=== PATIENT | male | born 1940 | race Caucasian/White ===

== ENCOUNTER → 2022-01-01 13:13 | Outpatient (BNVA) | payer MEDICARE, SELFPAY | PROVIDERS: PCP Internal Medicine; Visit Provider Nurse Practitioner Family | DX: R55 Syncope and collapse (principal); I48.0 Paroxysmal atrial fibrillation; I35.0 Nonrheumatic aortic (valve) stenosis; I10 Essential (primary) hypertension | CPT/HCPCS: 99202 ==

== ENCOUNTER 2022-01-03 13:40 | Outpatient (REF) | payer MEDICARE, SELFPAY ==
--- NOTE | ~2022-01-03 | US_ITS ---
EXAMINATION: US EXTRACRANIAL CAROTID DUPLEX, BILATERAL CLINICAL INFORMATION: Syncope and collapse COMPARISON: None TECHNIQUE: Real-time ultrasound and Doppler techniques (integrating B-mode 2-D vascular images, Doppler spectral analysis and color-flow Doppler imaging) were utilized to interrogate the extracranial carotid arteries, the vertebral arteries and proximal subclavian arteries bilaterally. The degree of stenosis is determined by criteria similar to NASCET. FINDINGS: Right Side: 1. There is calcified atherosclerotic plaque seen in the bifurcation/proximal ICA region. 2. The common carotid artery PSV proximally is 48 cm/s and distally 68 cm/s. 3. The proximal internal carotid artery velocities are 145 cm/s systolic and 33 cm/s diastolic. 4. The proximal external carotid artery PSV is 441 cm/s. 5. The vertebral artery shows antegrade flow. 6. The subclavian artery waveforms are normal. Left Side: 1. There is calcified atherosclerotic plaque seen in the bifurcation/proximal ICA region. 2. The common carotid artery PSV proximally is 87 cm/s and distally 93 cm/s. 3. The proximal internal carotid artery velocities are 160 cm/s systolic and 28 cm/s diastolic. 4. The proximal external carotid artery PSV is 164 cm/s. 5. The vertebral artery shows antegrade flow. 6. The subclavian artery waveforms are normal. There is an arrhythmia. US/US carotid duplex BI IMPRESSION: 1. RIGHT: Calcified plaque. 0-49% right ICA stenosis. Right ECA stenosis. 2. LEFT: Calcified plaque. 0-49% left ICA stenosis.
== END 2022-01-03 13:41 | disposition home or self-care (01) ==
LOC: HO.US 13:40
PROVIDERS: Visit Provider Nurse Practitioner Family
DX: I25.10 Atherosclerotic heart disease of native coronary artery without angina pectoris (principal); I10 Essential (primary) hypertension; E78.5 Hyperlipidemia, unspecified; R55 Syncope and collapse
CPT/HCPCS: 93880

== ENCOUNTER → 2022-01-07 13:37 | Outpatient (BNVA) | payer MEDICARE, SELFPAY | PROVIDERS: PCP Internal Medicine; Visit Provider Internal Medicine | DX: R55 Syncope and collapse (principal); I25.10 Atherosclerotic heart disease of native coronary artery without angina pectoris; I35.0 Nonrheumatic aortic (valve) stenosis; I11.0 Hypertensive heart disease with heart failure; I50.32 Chronic diastolic (congestive) heart failure; Z79.899 Other long term (current) drug therapy | CPT/HCPCS: 93005; 99202 ==

== ENCOUNTER → 2022-01-08 06:37 | Outpatient (REF) | payer MEDICARE, SELFPAY ==
--- NOTE | 2022-01-08 06:43 | HM_ITS ---
* Total monitoring time 11 days and 22 hours. * Underlying rhythm is sinus as well as atrial fibrillation. * Atrial fibrillation burden was about 48%. * While in atrial fibrillation, rapid rates noted as much as 146/Min. Overall, about 15% the time, rate greater than 100/Min. * Pauses noted during atrial fibrillation. During sleep time as well as awake hours. Longest 5.7 seconds. * Occasional PVCs noted. Short runs noted. Longest 10 beats. Monomorphic. * No patient diary. * Patient was contacted advised to go to emergency room. MTDD
== END ==
LOC: HO.CARD 06:37
PROVIDERS: Visit Provider Nurse Practitioner Family
DX: I48.0 Paroxysmal atrial fibrillation (principal); I10 Essential (primary) hypertension; R55 Syncope and collapse
CPT/HCPCS: 93246

== ENCOUNTER 2022-01-14 07:47 | Outpatient (REF) | payer MEDICARE, SELFPAY ==
--- NOTE | 2022-01-14 07:49 | EEG_ITS ---
This is a 16-channel EEG with an EKG lead. The patient is reported awake during the tracing. Background EEG rhythm is low amplitude fast with no obvious asymmetry or paroxysmal tendency. Photic stimulation does not produce any significant abnormality. Hyperventilation is not performed. Cardiac lead does not reveal any significant abnormality. No sharp wave spikes or paroxysmal tendency noted. IMPRESSION: Unremarkable EEG. MD KACIE Bergman/TALISHA / [id number]
== END 2022-01-14 07:48 | disposition home or self-care (01) ==
LOC: HO.NEURO 07:47
PROVIDERS: Visit Provider Nurse Practitioner Family
DX: R55 Syncope and collapse (principal)
CPT/HCPCS: 95816

== ENCOUNTER → 2022-03-10 13:40 | Outpatient (BNVA) | payer MEDICARE, SELFPAY | PROVIDERS: PCP Internal Medicine; Visit Provider Internal Medicine | DX: Z45.02 Encounter for adjustment and management of automatic implantable cardiac defibrillator (principal); I11.0 Hypertensive heart disease with heart failure; I50.32 Chronic diastolic (congestive) heart failure; I49.5 Sick sinus syndrome; I48.0 Paroxysmal atrial fibrillation; I25.10 Atherosclerotic heart disease of native coronary artery without angina pectoris; I35.0 Nonrheumatic aortic (valve) stenosis | CPT/HCPCS: 93005; 93280; 99212 ==

== ENCOUNTER → 2022-03-19 12:44 | Outpatient (REF) | payer MEDICARE, SELFPAY ==
--- NOTE | 2022-03-19 12:48 | CA_ITS ---
Transthoracic Echocardiogram Patient (Last, First, Middle): Scotty Zarate, Gender: Male Date of : 1940 Age: 81 Procedure Date: 03/19/2022 Procedure Type: Transthoracic Echocardiogram Location: OP Height: 170.18 cm Weight: 79.38 kg BSA: 1.91 m2 Heart Rate: bpm BP: 160 / 65 mmHg Actuarial Trainee: TO Referring MD: Monster Corona MD Symptoms: I35.0 - Nonrheumatic aortic (valve) stenosis Study Quality: Fair ECG Rhythm: Sinus Conclusions: - 1. Normal LV systolic function with mild LVH with grade 2 diastolic dysfunction 2. Qmsv-yc-fbswwvdl aortic stenosis 3. Mildly dilated left atrium 4. Severely elevated right ventricular systolic pressure 5. No gross pericardial effusion Findings Procedure Information Contrast agent, definity, is being given per protocol without apparent complications. Left Ventricle Normal left ventricular size and systolic function. There is mildly increased left ventricular wall thickness. The visually estimated ejection fraction is between 60-65%. Spectral Doppler is indicative of a pseudonormal filling pattern. Elevated filling pressures. E/E prime ratio is >15, consistent with elevated filling pressures. Evidence suggests grade II (moderate) diastolic dysfunction. Right Ventricle Normal right ventricular cavity size and systolic function. There is a pacemaker wire seen in the right ventricle. Atria The left atrium is mildly dilated. There is lipomatous hypertrophy of the interatrial septum. There is no evidence of interatrial shunt. The right atrium is likely dilated. A pacemaker wire is identified in the right atrium. Aortic Valve There is mild calcification of the aortic valve. There is mild thickening of the aortic valve. There is mild to moderate aortic valve stenosis. The peak aortic gradient is 25 mmHg.The mean gradient is 12 mmHg. The aortic valve area is 1.34 cm2. There is no aortic valve regurgitation. Mitral Valve There is mild anterior and moderate posterior mitral leaflet thickening. There is moderate mitral annular calcification. There is trace mitral valve regurgitation. There is no mitral valve stenosis. Pulmonic Valve The pulmonic valve is likely normal. Tricuspid Valve Normal tricuspid valve structure. There is mild tricuspid valve regurgitation. The right ventricular systolic pressure is normal. The right ventricular systolic pressure is 80 mmHg. Severe pulmonary hypertension is present. Great Vessels All visible segments of the aorta are normal in size. The pulmonary artery was not well visualized. Venous The inferior vena cava is normal in size and collapses greater than 50% with inspiration. Pericardium/Pleural There is no evidence of pericardial effusion. Prior Study Comparison No prior study available for comparison. Measurements 2D Linear Measurements IVSd: 1.35 0.6-0.9/0.6-1.0 cm LVIDd: 4.03 3.9-5.3/4.2-5.9 cm LVIDd Index: 2.11 2.4-3.2/2.2-3.1 cm/m2 LVIDs: 2.39 2.0-3.6 cm LVPWd: 1.17 0.7-1.1 cm LA Diam: 3.90 2.7-3.8/3.0-4.0 cm LAIDs Index: 2.04 1.5-2.3 cm/m2 LV Mass: 224.18 67-162/88-224 g LV Mass Index: 117.37 43-95/49-115 g/m2 LVOT Diam: 2.00 3.0+(-)1.3 cm Mitral Valve MV VTI: 0.34 MV Pk Jaren: 1.27 MV Mn Jaren: 0.65 MV Pk Grad: 6.00 MV Mn Grad: 2.00 MV Pk E: 1.24 MV PK A: 0.35 MV Decel Time: 164.00 E/A: 3.50 E'Lateral: 7.07 E'Medial: 6.09 E/E' Med: 20.40 E/E' Lat: 17.50 PHT: 48.00 MVA PHT: 4.58 MVA Continuity: 2.33 Decel [place]: 7.57 Aortic Valve AoV Pk Jaren: 2.50 AoV Mn Jaren: 1.59 AoV VTI: 0.59 AoV Pk Grad: 25.00 Aov Mn Grad: 12.00 QIANA Cont.VTI: 1.34 LVOT LVOT Pk Jaren: 0.90 LVOT Mn Jaren: 0.63 LVOT VTI: 0.25 LVOT Pk Grad: 3.00 LVOT Mn Grad: 2.00 LVOT Diam: 2.00 LVOT Area: 3.14 Diastolic Function MV Pk E: 1.24 MV Pk A: 0.35 E/A: 3.50 E'Medial: 6.09 E/E' Med: 20.40 E' Laterial: 7.07 E/E' Lat: 17.50 Right Ventricle TAPSE (mm): 24.00 TVS' Jaren: 12.00 Tricuspid Valve TR Pk Jaren: 4.40 TR Pk Grad: 77.00 RA Press: 3.00 RVSP: 80.00 Great Vessels Aorta Ao Asc: 3.00 2.1-3.4 cm Updated in Other Vendor System with Status of Final Raymon French MD electronically signed on 03/19/2022 3:17:54 PM with status of Final
== END ==
LOC: HO.CARD 12:44
PROVIDERS: Visit Provider Internal Medicine
DX: I35.0 Nonrheumatic aortic (valve) stenosis (principal)
CPT/HCPCS: 93306; Q9957

== ENCOUNTER → 2022-04-23 13:24 | Outpatient (BNVA) | payer MEDICARE, SELFPAY | PROVIDERS: PCP Internal Medicine; Visit Provider Internal Medicine | DX: I25.10 Atherosclerotic heart disease of native coronary artery without angina pectoris (principal); I48.0 Paroxysmal atrial fibrillation; I11.0 Hypertensive heart disease with heart failure; I50.32 Chronic diastolic (congestive) heart failure; I35.0 Nonrheumatic aortic (valve) stenosis; I27.20 Pulmonary hypertension, unspecified; Z79.82 Long term (current) use of aspirin; Z79.899 Other long term (current) drug therapy; Z95.0 Presence of cardiac pacemaker | CPT/HCPCS: 99212 ==

== ENCOUNTER → 2022-07-31 14:14 | Outpatient (BNVA) | payer MEDICARE, SELFPAY | PROVIDERS: PCP Internal Medicine; Visit Provider Internal Medicine | DX: I25.10 Atherosclerotic heart disease of native coronary artery without angina pectoris (principal); I35.0 Nonrheumatic aortic (valve) stenosis; I11.0 Hypertensive heart disease with heart failure; I50.32 Chronic diastolic (congestive) heart failure; I27.20 Pulmonary hypertension, unspecified; Z86.79 Personal history of other diseases of the circulatory system; Z79.82 Long term (current) use of aspirin; Z79.899 Other long term (current) drug therapy; Z95.0 Presence of cardiac pacemaker | CPT/HCPCS: 99212 ==

== ENCOUNTER → 2022-12-22 23:59 | Outpatient (BNV) | payer MEDICARE, SELFPAY ==
--- NOTE | 2022-12-25 15:59 | MHC.OFFVIS ---
Intake Intake Visit Reasons: Remote Device Check- [employer] Allergies No Known Allergies Allergy (Verified 07/31/22 14:21) [facility] Medical History (Updated 04/23/22 @ 14:08 by Monster Corona MD) Essential hypertension CKD (chronic kidney disease) Cervical spinal stenosis CAD (coronary artery disease) Gout Low back pain HLD (hyperlipidemia) Surgical History History of carpal tunnel surgery of left wrist History of heart artery stent Family History Mother Diabetes Father No problems noted. Social History (Updated 07/31/22 @ 14:24 by Althea Casas) Household Members: Spouse Alcohol intake: current Alcohol intake frequency: 0-2 drinks per day Alcohol type: wine Patient Tobacco Use Status: Former Tobacco user Quit Date: 30yrs Office Procedures Cardiac Device Check Cardiac Device Check Details: Date of service- 12/22/2022 ; Battery life 5 years; normal lead parameters; AP 5%; DRILL PRESS HAND 21%; AT/AF 24%; Overall normal device function. [id number] Cardiac Device Interrogation, pacemaker Procedure code (CPT) selection complete Assessment & Plan Assessment & Plan (1) Paroxysmal A-fib: Code(s): I48.0 - Paroxysmal atrial fibrillation (2) Sick sinus syndrome: Code(s): I49.5 - Sick sinus syndrome Coding Level of Care Code Procedure Only Diagnoses Paroxysmal A-fib I48.0 Sick sinus syndrome I49.5 CPT Codes Cardiac Device Check - Cardiac Device 12: [id number] Cardiac Device Interrogation, pacemaker ([id number])
== END ==
PROVIDERS: PCP Internal Medicine; Visit Provider Internal Medicine
DX: I48.0 Paroxysmal atrial fibrillation (principal); I49.5 Sick sinus syndrome; Z95.0 Presence of cardiac pacemaker
CPT/HCPCS: 93294

== ENCOUNTER 2023-03-16 15:10 | Outpatient (AMB) | payer MEDICARE, SELFPAY ==
[2023-03-16 15:17] VITALS: BP 122/54; PULSE 93; BMI 26.3
--- NOTE | 2023-03-16 15:17 | MHC.OFFVIS ---
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 To recall, he was seen in consultation regarding syncopal episodes. After this, he underwent Holter monitoring that showed long pauses. Then underwent pacemaker placement. He states that after this, the syncopal episodes have resolved completely. He does have an extensive cardiac history including coronary disease and prior LAD stent, noncritical aortic stenosis, paroxysmal atrial fibrillation not on anticoagulation due to GI bleeding, hypertension, hyperlipidemia among others. He states that recently he is feeling more short of breath than before. He blames it on torsemide. He believes that when he was taking furosemide he was much better. However, not clear if that is the actual reason for shortness of breath. He does have chronic diastolic heart failure as well as pulmonary hypertension. [facility] Medical History (Updated 04/23/22 @ 14:08 by Monster Corona MD) Essential hypertension CKD (chronic kidney disease) Cervical spinal stenosis CAD (coronary artery disease) Gout Low back pain HLD (hyperlipidemia) Surgical History History of heart artery stent History of carpal tunnel surgery of left wrist Family History Mother Diabetes Father No problems noted. Household Members: Spouse Alcohol intake: current Alcohol intake frequency: 0-2 drinks per day Alcohol type: wine Patient Tobacco Use Status: Former Tobacco user Quit Date: 30yrs Review of Systems Const Denies weakness ENT Denies dizziness Card Denies chest pain, Denies chest pain with activity, Denies syncope, Denies rapid heart rate, Denies pedal edema, Denies edema, Denies leg edema, Denies lightheadedness, Denies palpitations, Denies dyspnea, Denies dyspnea on exertion and Denies orthopnea Resp Denies cough, Denies dyspnea and Denies dyspnea on exertion GI Denies hematochezia and Denies change in stool character Musc Denies abnormal gait, Denies muscle cramps, Denies muscle weakness, Denies numbness, Denies radiating pain into limb and Denies tingling Neuro Denies Abnormal speech present, Denies abnormal gait, Denies dizziness, Denies syncope, Denies numbness, Denies tingling and Denies weakness Endo Denies palpitations Physical Exam Vital Signs: Last Vital Signs Pulse 93 03/16/23 15:17 BP 122/54 L 03/16/23 15:17 BMI result Body Mass Index 26.3 Const General: comfortable and no acute distress Orientation/consciousness: patient oriented x3 HEENT Other: Unremarkable Head: Yes normal to inspection Neck Neck: Yes normal visual inspection Chest Chest palpation & inspection: normal inspection of the chest Resp Auscultation: clear to auscultation bilaterally Cardio Palpation: normal PMI Heart sounds: S1 normal heart sound present, S2 normal heart sound present, no gallops, Murmur heart sound present systolic II/ and no rubs GI Palpation (GI): Soft to palpation Back/Spine/Pelvis Other: unremarkable Skin General skin exam: no rashes or lesions noted Neuro General: patient oriented x3 Speech: No Abnormal speech present Extrem General: Yes normal to inspection Psych Mental Status: mental status grossly normal Office Procedures EKG Details: EKG shows atrial fibrillation at a rate of 93/Min; ventricular pacing. [id number], Complete Assessment & Plan Assessment & Plan (1) Chronic heart failure with preserved ejection fraction: Code(s): I50.32 - Chronic diastolic (congestive) heart failure Plan: More short of breath now than in the past per patient. However, no obvious volume overload. Check labs including cardiac BNP and BMP. Check echocardiogram. Continue torsemide for now. Possibly increase the dose based on the kidney function. (2) Paroxysmal A-fib: Code(s): I48.0 - Paroxysmal atrial fibrillation Plan: Today, by EKG he is in atrial fibrillation. Will check remote pacemaker data for atrial fibrillation burden/adequacy of rate control. He is on beta-blockers. History of GI bleeding in the past and hence Coumadin was stopped. He is not interested in anticoagulation or Watchman device. Has been discussed several times. Because of not taking anticoagulation, not suitable for any cardioversion even if consistently in atrial fibrillation. (3) CAD (coronary artery disease): Code(s): I25.10 - Atherosclerotic heart disease of [place] coronary artery without angina pectoris Plan: Status post drug-eluting stent to LAD, 2016. Most recent catheterization from 05/2019. This shows moderate RCA disease, mild LAD disease and moderate circumflex disease. Most recently stress test 02/2020, that showed normal perfusion. Continue aspirin, beta-blockers, statins. Last LDL from July 2022 29 mg/dL. Triglycerides 170 mg/dL. Well controlled. (4) Sick sinus syndrome: Code(s): I49.5 - Sick sinus syndrome Plan: Status post pacemaker. Can be followed remotely. (5) Aortic stenosis: Comment: mild Code(s): I35.0 - Nonrheumatic aortic (valve) stenosis Plan: Last echocardiogram with dhob-ah-simzttew aortic stenosis. Not hemodynamically significant this time. Can be followed clinically and by echocardiograms. (6) Essential hypertension: Code(s): I10 - Essential (primary) hypertension Plan: Stable. No changes. (7) Pulmonary hypertension: Code(s): I27.20 - Pulmonary hypertension, unspecified Plan: Suspected to be from left heart dysfunction as well as from atrial fibrillation. We can recheck an echocardiogram. Orders: Orders CA echo transthoracic complete Today I25.10 - Atherosclerotic heart disease of [place] coronary artery without angina pectoris, I50.32 - Chronic diastolic (congestive) heart failure Basic Metabolic Panel Today I50.22 - Chronic systolic (congestive) heart failure, I50.32 - Chronic diastolic (congestive) heart failure B Type Natriuretic Peptide Today I50.32 - Chronic diastolic (congestive) heart failure, I50.9 - Heart failure, unspecified Coding Level of Care Code Est Pt Level 4 (82784) Diagnoses Chronic heart failure with preserved ejection fraction I50.32 Paroxysmal A-fib I48.0 CAD (coronary artery disease) I25.10 Sick sinus syndrome I49.5 Aortic stenosis I35.0 Essential hypertension I10 Pulmonary hypertension I27.20 CPT Codes EKG - CPT: 99018-[id number], Complete ([id number])
== END 2023-03-16 15:41 | disposition home or self-care (01) ==
PROVIDERS: PCP Internal Medicine; Visit Provider Internal Medicine
DX: I50.32 Chronic diastolic (congestive) heart failure (principal); I48.0 Paroxysmal atrial fibrillation; I25.10 Atherosclerotic heart disease of native coronary artery without angina pectoris; I49.5 Sick sinus syndrome; I35.0 Nonrheumatic aortic (valve) stenosis; I10 Essential (primary) hypertension; I27.20 Pulmonary hypertension, unspecified
CPT/HCPCS: 93010; 99214

== ENCOUNTER → 2023-03-16 15:10 | Outpatient (BNVA) | payer MEDICARE, SELFPAY | PROVIDERS: PCP Internal Medicine; Visit Provider Internal Medicine | DX: I50.32 Chronic diastolic (congestive) heart failure (principal); I48.0 Paroxysmal atrial fibrillation; I25.10 Atherosclerotic heart disease of native coronary artery without angina pectoris; I49.5 Sick sinus syndrome; I35.0 Nonrheumatic aortic (valve) stenosis; I10 Essential (primary) hypertension; I27.20 Pulmonary hypertension, unspecified | CPT/HCPCS: 93005; 99212 ==

== ENCOUNTER → 2023-03-23 23:59 | Outpatient (BNV) | payer MEDICARE, SELFPAY ==
--- NOTE | 2023-03-24 19:24 | MHC.OFFVIS ---
Intake Intake Visit Reasons: Remote Device Check- [employer] Allergies No Known Allergies Allergy (Verified 07/31/22 14:21) [facility] Medical History (Updated 04/23/22 @ 14:08 by Monster Corona MD) Essential hypertension CKD (chronic kidney disease) Cervical spinal stenosis CAD (coronary artery disease) Gout Low back pain HLD (hyperlipidemia) Surgical History History of heart artery stent History of carpal tunnel surgery of left wrist Family History Mother Diabetes Father No problems noted. Social History Household Members: Spouse Alcohol intake: current Alcohol intake frequency: 0-2 drinks per day Alcohol type: wine Patient Tobacco Use Status: Former Tobacco user Quit Date: 30yrs Office Procedures Cardiac Device Check Cardiac Device Check Details: Date of service- 03/23/2023 ; Battery life >5 years; normal lead parameters; AP 10%; FORMULA WEIGHER 35%; no significant arrhythmias. Overall normal device function. [id number] Cardiac Device Interrogation, pacemaker Procedure code (CPT) selection complete Assessment & Plan Assessment & Plan (1) Paroxysmal A-fib: Code(s): I48.0 - Paroxysmal atrial fibrillation Plan x Coding Level of Care Code Procedure Only Diagnoses Paroxysmal A-fib I48.0 CPT Codes Cardiac Device Check - Cardiac Device 12: [id number] Cardiac Device Interrogation, pacemaker ([id number])
== END ==
PROVIDERS: PCP Internal Medicine; Visit Provider Internal Medicine
DX: I48.0 Paroxysmal atrial fibrillation (principal); Z95.0 Presence of cardiac pacemaker
CPT/HCPCS: 93294

== ENCOUNTER 2023-04-29 12:48 | Outpatient (AMB) | payer MEDICARE, SELFPAY ==
[2023-04-29 13:29] VITALS: BP 160/80; PULSE 83; O2SAT 95; BMI 24.6
--- NOTE | 2023-04-29 13:29 | HO.NEPHOV ---
HPI HPI Comments History of Present Illness Details Elderly man with long standing HTN and CKD with a baseline creatinine of about 3 mg/dL and h.o ATN by biopsy in 2020, CAD, s.p Pacemaker, CAD and CHF referred for managemnet of CKD He was on Torsemide 40 mg QD Developed dyspnea So self administered 20 mg Q PM in addition to 40 mg Q AM for the past 2 weeks Feels much better No dyspnea Monitors weight at home and it remains stable No edema PFSH Medical History Essential hypertension CKD (chronic kidney disease) Cervical spinal stenosis CAD (coronary artery disease) Gout Low back pain HLD (hyperlipidemia) Surgical History History of heart artery stent History of carpal tunnel surgery of left wrist Family History Mother Diabetes Father No problems noted. Social History Household Members: Spouse Alcohol intake: current Alcohol intake frequency: 0-2 drinks per day Alcohol type: wine Patient Tobacco Use Status: Former Tobacco user Quit Date: 30yrs Vital Signs 04/29/23 13:29 Height 5 ft 7 in Weight 157 lb BMI 24.6 BP 160/80 H Blood Pressure Location Lt brachial Position Sitting Pulse 83 Pulse Source Pulse Oximeter Pulse Oximetry (%) 95 Oxygen Delivery Method Room Air Physical Exam Vital Signs: Last Vital Signs Pulse 83 04/29/23 13:29 BP 160/80 H 04/29/23 13:29 Pulse Ox 95 04/29/23 13:29 Oxygen Delivery Method Room Air 04/29/23 13:29 BMI result Body Mass Index 24.6 Const General: comfortable Nutritional Appearance: well nourished Orientation/consciousness: patient oriented x3 HEENT Head: No normal to inspection Mouth: moist mucous membranes Neck Neck: Yes supple and Yes no JVD Resp Auscultation: clear to auscultation bilaterally, no rales and rub present Cardio Jugular venous distension: no JVD Palpation: no palpable S3 and no palpable S4 Heart sounds: no rubs GI Palpation (GI): Soft to palpation and nontender Percussion: No Fluid wave present General: Yes no CVA tenderness Back/Spine/Pelvis Back: no CVA tenderness Skin General skin exam: no rashes or lesions noted Neuro General: patient oriented x3 Extrem General: Yes no pedal edema and No clubbing Assessment & Plan Assessment & Plan (1) Essential hypertension: Code(s): I10 - Essential (primary) hypertension (2) Chronic heart failure with preserved ejection fraction: Code(s): I50.32 - Chronic diastolic (congestive) heart failure (3) CKD (chronic kidney disease) stage 4, GFR 15-29 ml/min: Comment: ATN by biopsy in 2020; 16 of 30 [place] with Global sclerosis ( 50%) Consistent with hypertensive kidney disease. 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 Biopsy in 2020 showed ATN CHF appears compensated Plan Low salt diet Keep Torsemide 40 mg Q AM and use 20 mg q PN as PRN Optimize BP Monitor weight at home work up initiated Avoid nephrotoxins including NSAIDS Orders: Orders Creatinine 2 Weeks N18.4 - Chronic kidney disease, stage 4 (severe) Complete Blood Count no Diff 2 Weeks N18.4 - Chronic kidney disease, stage 4 (severe) Parathyroid Hormone Intact 2 Weeks N18.4 - Chronic kidney disease, stage 4 (severe) Electrolytes 2 Weeks N18.4 - Chronic kidney disease, stage 4 (severe) Blood Urea Nitrogen 2 Weeks N18.4 - Chronic kidney disease, stage 4 (severe) Calcium 2 Weeks N18.4 - Chronic kidney disease, stage 4 (severe) Coding Level of Care Code New Pt Level 5 (60738) Diagnoses Essential hypertension I10 Chronic heart failure with preserved ejection fraction I50.32 CKD (chronic kidney disease) stage 4, GFR 15-29 ml/min N18.4 Results Reviewed Nephrology Results: No Data to Display
== END 2023-04-29 13:59 | disposition home or self-care (01) ==
PROVIDERS: PCP Internal Medicine; Referring Provider Internal Medicine; Visit Provider Internal Medicine Hypertension Specialist
DX: I13.0 Hypertensive heart and chronic kidney disease with heart failure and stage 1 through stage 4 chronic kidney disease, or unspecified chronic kidney disease (principal); I50.32 Chronic diastolic (congestive) heart failure; N18.4 Chronic kidney disease, stage 4 (severe)
CPT/HCPCS: 99204

== ENCOUNTER → 2023-04-29 12:48 | Outpatient (BNVA) | payer MEDICARE, SELFPAY | PROVIDERS: PCP Internal Medicine; Referring Provider Internal Medicine; Visit Provider Internal Medicine Hypertension Specialist | DX: I13.0 Hypertensive heart and chronic kidney disease with heart failure and stage 1 through stage 4 chronic kidney disease, or unspecified chronic kidney disease (principal); N18.4 Chronic kidney disease, stage 4 (severe); I50.32 Chronic diastolic (congestive) heart failure | CPT/HCPCS: 99202 ==

== ENCOUNTER → 2023-06-01 14:34 | Outpatient (REF) | payer MEDICARE, SELFPAY ==
--- NOTE | 2023-06-01 14:39 | CA_ITS ---
Transthoracic Echocardiogram Patient (Last, First, Middle): Scotty Zarate, Gender: Male Date of : 1940 Age: 82 Procedure Date: 06/01/2023 Procedure Type: Transthoracic Echocardiogram Location: OP Height: 167.64 cm Weight: 68.04 kg BSA: 1.77 m2 Heart Rate: bpm BP: 125 / 70 mmHg Structural Biologist: RONDA Referring MD: Monster Corona MD Symptoms: I25.10 - Atherosclerotic heart disease of [place] coronary artery without... Study Quality: Fair ECG Rhythm: Ventriculary paced rhythm Conclusions: - The left ventricular systolic function is normal. The visually estimated ejection fraction is between 65-70%. - There is moderately increased left ventricular wall thickness. - There is moderate aortic valve stenosis. - There is mild to moderate tricuspid valve regurgitation. - Moderate pulmonary hypertension is present. Findings Left Ventricle Normal left ventricular cavity size. There is moderately increased left ventricular wall thickness. The left ventricular systolic function is normal. The visually estimated ejection fraction is between 65-70%. There is no evidence of regional wall motion abnormalities. Diastolic function is indeterminate on the basis of available data. Right Ventricle Mildly increased right ventricular cavity size. There is normal right ventricular systolic function. Atria The left atrium is moderately dilated. The right atrium is mildly dilated. Aortic Valve There is moderate calcification of the aortic valve. There is moderate aortic valve stenosis. There is no aortic valve regurgitation. Mitral Valve There is mild mitral annular calcification. There is trace mitral valve regurgitation. There is no mitral valve stenosis. Pulmonic Valve The pulmonic valve is likely normal. Tricuspid Valve There is mild to moderate tricuspid valve regurgitation. Moderate pulmonary hypertension is present. Great Vessels The asc aorta is normal in size. Venous The inferior vena cava is normal in size and collapses greater than 50% with inspiration. Pericardium/Pleural There is no evidence of pericardial effusion. Prior Study Comparison No significant change compared to prior study dated: 03/19/2022. Measurements 2D Linear Measurements IVSd: 1.42 0.6-0.9/0.6-1.0 cm LVIDd: 3.42 3.9-5.3/4.2-5.9 cm LVIDd Index: 1.93 2.4-3.2/2.2-3.1 cm/m2 LVIDs: 2.19 2.0-3.6 cm LVPWd: 1.26 0.7-1.1 cm LA Diam: 3.80 2.7-3.8/3.0-4.0 cm LAIDs Index: 2.15 1.5-2.3 cm/m2 LV Mass: 194.46 67-162/88-224 g LV Mass Index: 109.86 43-95/49-115 g/m2 LVOT Diam: 2.00 3.0+(-)1.3 cm Mitral Valve MV Pk E: 1.30 MV Decel Time: 161.00 E'Lateral: 4.88 E'Medial: 5.05 E/E' Med: 25.70 E/E' Lat: 26.60 PHT: 47.00 MVA PHT: 4.68 Decel [place]: 8.23 Aortic Valve AoV Pk Jaren: 2.52 AoV Mn Jaren: 1.68 AoV VTI: 0.59 AoV Pk Grad: 25.00 Aov Mn Grad: 13.00 QIANA Cont.VTI: 1.09 LVOT LVOT Pk Jaren: 0.75 LVOT Mn Jaren: 0.55 LVOT VTI: 0.21 LVOT Pk Grad: 2.00 LVOT Mn Grad: 1.00 LVOT Diam: 2.00 LVOT Area: 3.14 Diastolic Function MV Pk E: 1.30 E'Medial: 5.05 E/E' Med: 25.70 E' Laterial: 4.88 E/E' Lat: 26.60 Right Ventricle TAPSE (mm): 17.60 TVS' Jaren: 11.40 Tricuspid Valve TR Pk Jaren: 3.82 TR Pk Grad: 58.00 RA Press: 3.00 RVSP: 61.00 Great Vessels Aorta Sinus of Valsalva: 3.07 2.0-3.[address] [place]: 2.22 1.7-3.4 cm Ao Asc: 2.90 2.1-3.4 cm Updated in Other Vendor System with Status of Final Monster Corona MD electronically signed on 06/02/2023 7:23:34 AM with status of Final
== END ==
LOC: HO.CARD 14:34
PROVIDERS: PCP Internal Medicine; Visit Provider Internal Medicine
DX: I25.10 Atherosclerotic heart disease of native coronary artery without angina pectoris (principal); I50.32 Chronic diastolic (congestive) heart failure
CPT/HCPCS: 93306

== ENCOUNTER → 2023-06-01 14:39 | Outpatient (BNV) | payer MEDICARE, SELFPAY | PROVIDERS: PCP Internal Medicine; Visit Provider Internal Medicine | DX: I25.10 Atherosclerotic heart disease of native coronary artery without angina pectoris (principal); I35.0 Nonrheumatic aortic (valve) stenosis | CPT/HCPCS: 93306 ==

== ENCOUNTER 2023-06-02 10:25 | Outpatient (AMB) | payer MEDICARE, SELFPAY ==
[2023-06-02 10:29] VITALS: BP 128/50; PULSE 102; BMI 24.7
--- NOTE | 2023-06-02 10:29 | MHC.OFFVIS ---
Intake Vital Signs 06/02/23 10:29 Height 5 ft 7 in Weight 157 lb 13.616 oz BMI 24.7 BP 128/50 L Blood Pressure Location Lt brachial Position Sitting Pulse 102 H Intake Visit Reasons: follow-up after echo Intake Note: follow up [employer] Required: No Accompanied by: Self / Same As Patient Allergies No Known Allergies Allergy (Verified 06/02/23 10:31) Medication List - Last Reconciled 06/02/23 by Monster Corona MD albuterol 90 mcg/actuation 90 mcg inhalation Q6-8H allopurinol 300 mg PO DAILY amlodipine (Norvasc) 5 mg PO DAILY aspirin (Adult Low Dose Aspirin) 81 mg PO DAILY carvedilol 18.75 mg (1.5 x 12.5 mg) PO BID 90 days rosuvastatin 40 mg PO DAILY torsemide 20 mg PO DAILY HPI HPI Comments History of Present Illness Details Scotty returns for follow-up regarding various cardiac issues. To recall, he was originally seen in consultation regarding syncopal episodes. After this, he underwent Holter monitoring that showed long pauses. Then underwent pacemaker placement. He states that after this, the syncopal episodes have resolved completely. He does have an extensive cardiac history including coronary disease and prior LAD stent, noncritical aortic stenosis, paroxysmal atrial fibrillation not on anticoagulation due to GI bleeding, hypertension, hyperlipidemia among others. Since last seen, he states he is feeling fine. He does not have any chest pain or shortness of breath or in fact any cardiac symptoms. He was feeling short of breath before but that seems resolved at this time. [facility] Medical History Essential hypertension CKD (chronic kidney disease) Cervical spinal stenosis CAD (coronary artery disease) Gout Low back pain HLD (hyperlipidemia) Surgical History History of heart artery stent History of carpal tunnel surgery of left wrist Family History Mother Diabetes Father No problems noted. Social History Household Members: Spouse Alcohol intake: current Alcohol intake frequency: 0-2 drinks per day Alcohol type: wine Patient Tobacco Use Status: Former Tobacco user Quit Date: 30yrs Review of Systems Const Denies weakness ENT Denies dizziness Card Denies chest pain, Denies chest pain with activity, Denies syncope, Denies rapid heart rate, Denies pedal edema, Denies edema, Denies leg edema, Denies lightheadedness, Denies palpitations, Denies dyspnea, Denies dyspnea on exertion and Denies orthopnea Resp Denies cough, Denies dyspnea and Denies dyspnea on exertion GI Denies hematochezia and Denies change in stool character Musc Denies abnormal gait, Denies muscle cramps, Denies muscle weakness, Denies numbness, Denies radiating pain into limb and Denies tingling Neuro Denies Abnormal speech present, Denies abnormal gait, Denies dizziness, Denies syncope, Denies numbness, Denies tingling and Denies weakness Endo Denies palpitations Physical Exam Vital Signs: Last Vital Signs Pulse 102 H 06/02/23 10:29 BP 128/50 L 06/02/23 10:29 BMI result Body Mass Index 24.7 Const General: comfortable and no acute distress Orientation/consciousness: patient oriented x3 HEENT Other: Unremarkable Head: Yes normal to inspection Neck Neck: Yes normal visual inspection Chest Chest palpation & inspection: normal inspection of the chest Resp Auscultation: clear to auscultation bilaterally Cardio Palpation: normal PMI Heart sounds: S1 normal heart sound present, S2 normal heart sound present, no gallops, Murmur heart sound present systolic II/ and no rubs GI Palpation (GI): Soft to palpation Back/Spine/Pelvis Other: unremarkable Skin General skin exam: no rashes or lesions noted Neuro General: patient oriented x3 Speech: No Abnormal speech present Extrem General: Yes normal to inspection Psych Mental Status: mental status grossly normal Assessment & Plan Assessment & Plan (1) Chronic heart failure with preserved ejection fraction: Code(s): I50.32 - Chronic diastolic (congestive) heart failure Plan: Continue diuretics. He does have elevated creatinine and is concurrently seeing Nephrology. Last available creatinine is 2.4. BUN is 25. (2) Paroxysmal A-fib: Code(s): I48.0 - Paroxysmal atrial fibrillation Plan: By last EKG, in atrial fibrillation. Continue beta-blockers. History of GI bleeding in the past and hence Coumadin was stopped. He is not interested in anticoagulation or Watchman device. Has been discussed several times. (3) CAD (coronary artery disease): Code(s): I25.10 - Atherosclerotic heart disease of [place] coronary artery without angina pectoris Plan: Status post drug-eluting stent to LAD, 2016. Most recent catheterization from 05/2019. This shows moderate RCA disease, mild LAD disease and moderate circumflex disease. Most recently stress test 02/2020, that showed normal perfusion. Continue aspirin, beta-blockers, statins. Last LDL from July 2022 29 mg/dL. Triglycerides 170 mg/dL. Well controlled. (4) Aortic stenosis: Comment: mild Code(s): I35.0 - Nonrheumatic aortic (valve) stenosis Plan: Echocardiogram from yesterday shows moderate aortic valve stenosis. Can be followed periodically. He really does not have any symptoms from this. (5) Essential hypertension: Code(s): I10 - Essential (primary) hypertension Plan: Stable. No changes. (6) Pulmonary hypertension: Code(s): I27.20 - Pulmonary hypertension, unspecified Plan: Suspected to be from left heart dysfunction as well as from atrial fibrillation. No specific plan at his age. (7) Sick sinus syndrome: Code(s): I49.5 - Sick sinus syndrome Plan: Status post pacemaker. Can be followed remotely. Coding Level of Care Code Est Pt Level 4 (91915) Diagnoses Chronic heart failure with preserved ejection fraction I50.32 Paroxysmal A-fib I48.0 CAD (coronary artery disease) I25.10 Aortic stenosis I35.0 Essential hypertension I10 Pulmonary hypertension I27.20 Sick sinus syndrome I49.5
== END 2023-06-02 13:11 | disposition home or self-care (01) ==
PROVIDERS: PCP Internal Medicine; Visit Provider Internal Medicine
DX: I50.32 Chronic diastolic (congestive) heart failure (principal); I48.0 Paroxysmal atrial fibrillation; I25.10 Atherosclerotic heart disease of native coronary artery without angina pectoris; I35.0 Nonrheumatic aortic (valve) stenosis; I10 Essential (primary) hypertension; I27.20 Pulmonary hypertension, unspecified; I49.5 Sick sinus syndrome
CPT/HCPCS: 99214

== ENCOUNTER → 2023-06-02 10:25 | Outpatient (BNVA) | payer MEDICARE, SELFPAY | PROVIDERS: PCP Internal Medicine; Visit Provider Internal Medicine | DX: I11.0 Hypertensive heart disease with heart failure (principal); I50.32 Chronic diastolic (congestive) heart failure; I48.0 Paroxysmal atrial fibrillation; I25.10 Atherosclerotic heart disease of native coronary artery without angina pectoris; I35.0 Nonrheumatic aortic (valve) stenosis; I27.20 Pulmonary hypertension, unspecified; I49.5 Sick sinus syndrome | CPT/HCPCS: 99212 ==

== ENCOUNTER → 2023-06-22 23:59 | Outpatient (BNV) | payer MEDICARE, SELFPAY ==
--- NOTE | 2023-06-23 18:54 | A.OFFVIS_ITS ---
Intake Intake Visit Reasons: Remote Device Check- [employer] Allergies No Known Allergies Allergy (Verified 06/02/23 10:31) [facility] Medical History Essential hypertension CKD (chronic kidney disease) Cervical spinal stenosis CAD (coronary artery disease) Gout Low back pain HLD (hyperlipidemia) Surgical History History of heart artery stent History of carpal tunnel surgery of left wrist Family History Mother Diabetes Father No problems noted. Social History Household Members: Spouse Alcohol intake: current Alcohol intake frequency: 0-2 drinks per day Alcohol type: wine Patient Tobacco Use Status: Former Tobacco user Quit Date: 30yrs Office Procedures Cardiac Device Check Cardiac Device Check Details: Date of service- 06/22/2023 ; Battery life >5 years; normal lead parameters; AP 11%; COMPOSITION TILE LAYER 41%; no alerts, possibly one episode of AFib RVR; ?NSVT episodes. Overall normal device function. [id number] Cardiac Device Interrogation, pacemaker Procedure code (CPT) selection complete Assessment & Plan Assessment & Plan (1) Paroxysmal A-fib: Code(s): I48.0 - Paroxysmal atrial fibrillation (2) Sick sinus syndrome: Code(s): I49.5 - Sick sinus syndrome Plan x Coding Level of Care Code Procedure Only Diagnoses Paroxysmal A-fib I48.0 Sick sinus syndrome I49.5 CPT Codes Cardiac Device Check - Cardiac Device 12: [id number] Cardiac Device Interrogation, pacemaker ([id number])
== END ==
PROVIDERS: PCP Internal Medicine; Visit Provider Internal Medicine
DX: I48.0 Paroxysmal atrial fibrillation (principal); I49.5 Sick sinus syndrome; Z95.0 Presence of cardiac pacemaker
CPT/HCPCS: 93294

== ENCOUNTER 2023-07-01 12:57 | Outpatient (AMB) | payer MEDICARE, SELFPAY ==
[2023-07-01 13:08] VITALS: BP 150/64; PULSE 94; O2SAT 91; BMI 25.4
--- NOTE | 2023-07-01 13:08 | HO.NEPHOV ---
HPI HPI Comments History of Present Illness Details Elderly man with long standing HTN and CKD with a baseline creatinine of about 3 mg/dL and h.o ATN by biopsy in 2020, CAD, s.p Pacemaker, CAD and CHF referred for managemnet of CKD He was on Torsemide 40 mg QD Developed dyspnea So self administered 20 mg Q PM in addition to 40 mg Q AM for the past 2 weeks Feels much better No dyspnea Monitors weight at home and it remains stable No edema 07/01/23 Here for Fool[employer] up Gained 5 lbs after lowering Torsemide Has some dyspnea on exertion PFSH Medical History Essential hypertension CKD (chronic kidney disease) Cervical spinal stenosis CAD (coronary artery disease) Gout Low back pain HLD (hyperlipidemia) Surgical History History of heart artery stent History of carpal tunnel surgery of left wrist Family History Mother Diabetes Father No problems noted. Social History Household Members: Spouse Alcohol intake: current Alcohol intake frequency: 0-2 drinks per day Alcohol type: wine Patient Tobacco Use Status: Former Tobacco user Quit Date: 30yrs Vital Signs 07/01/23 13:08 07/01/23 13:52 Height 5 ft 7 in Weight 162 lb BMI 25.4 BP 150/64 H 140/60 H Blood Pressure Location Lt brachial Lt brachial Position Sitting Sitting Pulse 94 Pulse Source Pulse Oximeter Pulse Oximetry (%) 91 L Oxygen Delivery Method Room Air Physical Exam Vital Signs: Last Vital Signs Pulse 94 07/01/23 13:08 BP 140/60 H 07/01/23 13:52 Pulse Ox 91 L 07/01/23 13:08 Oxygen Delivery Method Room Air 07/01/23 13:08 BMI result Body Mass Index 25.4 Const General: comfortable Nutritional Appearance: well nourished Orientation/consciousness: patient oriented x3 HEENT Head: No normal to inspection Mouth: moist mucous membranes Neck Neck: Yes supple and Yes no JVD Resp Auscultation: clear to auscultation bilaterally, no rales and rub present Cardio Jugular venous distension: no JVD Palpation: no palpable S3 and no palpable S4 Heart sounds: no rubs GI Palpation (GI): Soft to palpation and nontender Percussion: No Fluid wave present General: Yes no CVA tenderness Back/Spine/Pelvis Back: no CVA tenderness Skin General skin exam: no rashes or lesions noted Neuro General: patient oriented x3 Extrem General: Yes no pedal edema and No clubbing Assessment & Plan Assessment & Plan (1) Essential hypertension: Code(s): I10 - Essential (primary) hypertension (2) Chronic heart failure with preserved ejection fraction: Code(s): I50.32 - Chronic diastolic (congestive) heart failure (3) CKD (chronic kidney disease) stage 4, GFR 15-29 ml/min: Comment: ATN by biopsy in 2020; 16 of 30 [place] with Global sclerosis ( 50%) Consistent with hypertensive kidney disease. 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 Biopsy in 2020 showed ATN CHF appears compensated Plan Low salt diet Keep current dose of Torsemide Asked him to double up until his weight returns to 150 or 152 lbs ( current weight is 156 at home) BP better controlled Will improve with diuresis Avoid nephrotoxins including NSAIDS Orders: Orders Basic Metabolic Panel Today N18.4 - Chronic kidney disease, stage 4 (severe) Coding Level of Care Code Est Pt Level 4 (52543) Diagnoses Essential hypertension I10 Chronic heart failure with preserved ejection fraction I50.32 CKD (chronic kidney disease) stage 4, GFR 15-29 ml/min N18.4 Results Reviewed Results Reviewed: Cr 05/24 in Apr 2023 Nephrology Results: No Data to Display
[2023-07-01 13:52] VITALS: BP 140/60
== END 2023-07-01 13:55 | disposition home or self-care (01) ==
PROVIDERS: PCP Internal Medicine; Visit Provider Internal Medicine Hypertension Specialist
DX: I12.9 Hypertensive chronic kidney disease with stage 1 through stage 4 chronic kidney disease, or unspecified chronic kidney disease (principal); I50.32 Chronic diastolic (congestive) heart failure; N18.4 Chronic kidney disease, stage 4 (severe)
CPT/HCPCS: 99214

== ENCOUNTER → 2023-07-01 12:57 | Outpatient (BNVA) | payer MEDICARE, SELFPAY | PROVIDERS: PCP Internal Medicine; Visit Provider Internal Medicine Hypertension Specialist | DX: I13.0 Hypertensive heart and chronic kidney disease with heart failure and stage 1 through stage 4 chronic kidney disease, or unspecified chronic kidney disease (principal); N18.4 Chronic kidney disease, stage 4 (severe); I50.32 Chronic diastolic (congestive) heart failure | CPT/HCPCS: 99212 ==

== ENCOUNTER → 2023-09-23 23:59 | Outpatient (BNV) | payer MEDICARE, SELFPAY ==
--- NOTE | 2023-09-27 11:06 | A.OFFVIS_ITS ---
Intake Visit Reasons: Remote Device Check- [employer] Allergies No Known Allergies Allergy (Verified 07/01/23 13:10) [facility] Medical History Essential hypertension CKD (chronic kidney disease) Cervical spinal stenosis CAD (coronary artery disease) Gout Low back pain HLD (hyperlipidemia) Surgical History History of heart artery stent History of carpal tunnel surgery of left wrist Family History Mother Diabetes Father No problems noted. Social History Household Members: Spouse Alcohol intake: current Alcohol intake frequency: 0-2 drinks per day Alcohol type: wine Patient Tobacco Use Status: Former Tobacco user Office Procedures Cardiac Device Check Cardiac Device Check Details: Date of service- 09/23/2023 ; Battery life 5 years; normal lead parameters; AP 11%; TALENT DEVELOPMENT CONSULTANT 43%; AT/AF 27%; non sustained V episodes; Overall normal device function. [id number] Cardiac Device Interrogation, pacemaker Procedure code (CPT) selection complete Assessment & Plan Assessment & Plan (1) Sick sinus syndrome: Code(s): I49.5 - Sick sinus syndrome Category: Medical Plan x Coding Level of Care Code Procedure Only Diagnoses Sick sinus syndrome I49.5 CPT Codes Cardiac Device Check - Cardiac Device 12: [id number] Cardiac Device Interrogation, pacemaker ([id number])
== END ==
PROVIDERS: PCP Internal Medicine; Visit Provider Internal Medicine
DX: I49.5 Sick sinus syndrome (principal); Z95.0 Presence of cardiac pacemaker
CPT/HCPCS: 93294

== ENCOUNTER 2023-10-28 09:40 | Outpatient (AMB) | payer MEDICARE, SELFPAY ==
--- NOTE | 2023-10-28 09:43 | HO.NEPHOV ---
Vital Signs 10/28/23 09:44 Height 5 ft 7 in Weight 151 lb BMI 23.6 BP 122/72 Blood Pressure Location Lt brachial Position Sitting Pulse 84 Pulse Source Pulse Oximeter Pulse Oximetry (%) 97 Oxygen Delivery Method Room Air Intake Visit Reasons: 4 mon follow up/ LVM [employer] Required: No Accompanied by: Self / Same As Patient Allergies No Known Allergies Allergy (Verified 10/28/23 09:45) HPI Comments Details: Elderly man with long standing HTN and CKD with a baseline creatinine of about 3 mg/dL and h.o ATN by biopsy in 2020, CAD, s.p Pacemaker, CAD and CHF referred for managemnet of CKD He was on Torsemide 40 mg QD Developed dyspnea So self administered 20 mg Q PM in addition to 40 mg Q AM for the past 2 weeks Feels much better No dyspnea Monitors weight at home and it remains stable No edema 07/01/23 Here for Follow up ;Gained 5 lbs after lowering Torsemide ;Has some dyspnea on exertion 10/28/23: Doing well. Lost few pounds. Breathing is good [facility] Medical History Essential hypertension CKD (chronic kidney disease) Cervical spinal stenosis CAD (coronary artery disease) Gout Low back pain HLD (hyperlipidemia) Surgical History History of heart artery stent History of carpal tunnel surgery of left wrist Family History Mother Diabetes Father No problems noted. Social History Household Members: Spouse Alcohol intake: current Alcohol intake frequency: 0-2 drinks per day Alcohol type: wine Patient Tobacco Use Status: Former Tobacco user Physical Exam Vital Signs: Last Vital Signs Pulse 84 10/28/23 09:44 BP 122/72 10/28/23 09:44 Pulse Ox 97 10/28/23 09:44 Oxygen Delivery Method Room Air 10/28/23 09:44 BMI result Body Mass Index 23.6 Const General: comfortable; No acute distress Orientation/consciousness: patient oriented x3 Eyes General: appearance normal, both eyes and all related structures Visual Black: normal visual black by confrontation Neck Neck: Yes supple and Yes no JVD Resp Effort & Inspection: normal respiratory effort and respiratory effort not decreased Auscultation: rhonchi Cardio Palpation: no palpable S3 and no palpable S4 Heart sounds: no rubs GI Inspection: Yes normal to inspection Palpation (GI): Soft to palpation Percussion: Yes normal to percussion Auscultation: normal bowel sounds General: Yes no CVA tenderness Back/Spine/Pelvis Back: no CVA tenderness Skin General skin exam: no petechiae and no purpura Neuro General: patient oriented x3 and no focal motor deficits Extrem General: No clubbing and No edema Results Reviewed Results Reviewed: Creatinie 1.92 ( better than 2.4 in Apr 2023) Nephrology Results: No Data to Display Assessment & Plan Assessment & Plan (1) Essential hypertension: Code(s): I10 - Essential (primary) hypertension Category: Medical (2) Chronic heart failure with preserved ejection fraction: Code(s): I50.32 - Chronic diastolic (congestive) heart failure Category: Medical (3) CKD (chronic kidney disease) stage 4, GFR 15-29 ml/min: Comment: ATN by biopsy in 2020; 16 of 30 [place] with Global sclerosis ( 50%) Consistent with hypertensive kidney disease. 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 Panel 4 Months N18.4 - Chronic kidney disease, stage 4 (severe) Coding Level of Care Code Est Pt Level 4 (13630) Diagnoses Essential hypertension I10 Chronic heart failure with preserved ejection fraction I50.32 CKD (chronic kidney disease) stage 4, GFR 15-29 ml/min N18.4
[2023-10-28 09:44] VITALS: BP 122/72; PULSE 84; O2SAT 97; BMI 23.6
== END 2023-10-28 10:00 | disposition home or self-care (01) ==
PROVIDERS: PCP Internal Medicine; Visit Provider Internal Medicine Hypertension Specialist
DX: I12.9 Hypertensive chronic kidney disease with stage 1 through stage 4 chronic kidney disease, or unspecified chronic kidney disease (principal); I50.32 Chronic diastolic (congestive) heart failure; N18.4 Chronic kidney disease, stage 4 (severe)
CPT/HCPCS: 99214

== ENCOUNTER → 2023-10-28 09:40 | Outpatient (BNVA) | payer MEDICARE, SELFPAY | PROVIDERS: PCP Internal Medicine; Visit Provider Internal Medicine Hypertension Specialist | DX: I13.0 Hypertensive heart and chronic kidney disease with heart failure and stage 1 through stage 4 chronic kidney disease, or unspecified chronic kidney disease (principal); N18.4 Chronic kidney disease, stage 4 (severe); I50.32 Chronic diastolic (congestive) heart failure | CPT/HCPCS: 99212 ==

== ENCOUNTER 2023-12-07 12:02 | Outpatient (AMB) | payer MEDICARE, SELFPAY ==
--- NOTE | 2023-12-07 12:24 | MHC.OFFVIS ---
Vital Signs 12/07/23 12:26 Height 5 ft 7 in Weight 152 lb 1.903 oz BMI 23.8 BP 140/60 H Blood Pressure Location Lt brachial Position Sitting Pulse 70 Pulse Source Monitor Intake Visit Reasons: 6 month follow up w/ device check Allergies No Known Allergies Allergy (Verified 10/28/23 09:45) Medication List - Last Reconciled 12/07/23 by Monster Corona MD albuterol 90 mcg/actuation 90 mcg inhalation Q6-8H allopurinol 300 mg PO DAILY amlodipine (Norvasc) 5 mg PO DAILY aspirin (Adult Low Dose Aspirin) 81 mg PO DAILY carvedilol 18.75 mg (1.5 x 12.5 mg) PO BID 90 days rosuvastatin 40 mg PO DAILY torsemide 20 mg PO DAILY HPI Comments Details: Scotty returns for follow-up regarding various cardiac issues. To recall, he was originally seen in consultation regarding syncopal episodes. After this, he underwent Holter monitoring that showed long pauses. Then underwent pacemaker placement. He does have an extensive cardiac history including coronary disease and prior LAD stent, noncritical aortic stenosis, paroxysmal atrial fibrillation not on anticoagulation due to GI bleeding, hypertension, hyperlipidemia among others. From cardiac, he does not have any symptoms. However, some swelling in the left knee with discoloration and additionally some discoloration in the feet and toes left side. According to him, certainly started few days prior. He also has discomfort that side. [facility] Medical History Essential hypertension CKD (chronic kidney disease) Cervical spinal stenosis CAD (coronary artery disease) Gout Low back pain HLD (hyperlipidemia) Surgical History History of heart artery stent History of carpal tunnel surgery of left wrist Family History Mother Diabetes Father No problems noted. Social History Household Members: Spouse Alcohol intake: current Alcohol intake frequency: 0-2 drinks per day Alcohol type: wine Patient Tobacco Use Status: Former Tobacco user Review of Systems Const Denies weakness ENT Denies dizziness Card Denies chest pain, Denies chest pain with activity, Denies syncope, Denies rapid heart rate, Denies pedal edema, Denies edema, Denies leg edema, Denies lightheadedness, Denies palpitations, Denies dyspnea, Denies dyspnea on exertion and Denies orthopnea Resp Denies cough, Denies dyspnea and Denies dyspnea on exertion GI Denies hematochezia and Denies change in stool character Musc Denies abnormal gait, Denies muscle cramps, Denies muscle weakness, Denies numbness, Denies radiating pain into limb and Denies tingling Neuro Denies abnormal gait, Denies dizziness, Denies syncope, Denies numbness, Denies tingling and Denies weakness Endo Denies palpitations Physical Exam Vital Signs: Last Vital Signs Pulse 70 12/07/23 12:26 BP 140/60 H 12/07/23 12:26 BMI result Body Mass Index 23.8 Const General: comfortable and no acute distress Orientation/consciousness: patient oriented x3 HEENT Other: Unremarkable Head: Yes normal to inspection Neck Neck: Yes normal visual inspection Chest Chest palpation & inspection: normal inspection of the chest Resp Auscultation: clear to auscultation bilaterally Cardio Palpation: normal PMI Heart sounds: S1 normal heart sound present, S2 normal heart sound present, no gallops, Murmur heart sound present systolic II/ and at the right sternal border and no rubs GI Palpation (GI): Soft to palpation Back/Spine/Pelvis Other: unremarkable Skin General skin exam: no rashes or lesions noted Neuro General: patient oriented x3 Extrem General: Yes normal to inspection Psych Mental Status: mental status grossly normal Office Procedures Cardiac Device Check Cardiac Device Check Details: Pacemaker interrogated today. Dual-chamber device, programmed DDD mode. Battery status 4.5 years. Normal lead parameters. Atrial fibrillation present. Some rapid rates. Overall, normal device function. [id number] Cardiac Device Check, pacemaker dual lead Procedure code (CPT) selection complete EKG Details: EKG with ventricular paced rhythm at 70/Min and underlying atrial fibrillation. [id number], Complete Assessment & Plan Assessment & Plan (1) Chronic heart failure with preserved ejection fraction: Code(s): I50.32 - Chronic diastolic (congestive) heart failure Category: Medical Plan: Remains on diuretics. Concurrently seeing Nephrology as he also has CKD. (2) Paroxysmal A-fib: Code(s): I48.0 - Paroxysmal atrial fibrillation Category: Medical Plan: Continue beta-blockers. History of GI bleeding in the past and hence Coumadin was stopped. He is not interested in anticoagulation or Watchman device. Has been discussed several times. (3) CAD (coronary artery disease): Code(s): I25.10 - Atherosclerotic heart disease of [place] coronary artery without angina pectoris Category: Medical Plan: Status post drug-eluting stent to LAD, 2016. Most recent catheterization from 05/2019. This shows moderate RCA disease, mild LAD disease and moderate circumflex disease. Most recently stress test 02/2020, that showed normal perfusion. Continue aspirin, beta-blockers, statins. Last LDL from July 2022 29 mg/dL. Triglycerides 170 mg/dL. Well controlled. (4) Aortic stenosis: Comment: mild Code(s): I35.0 - Nonrheumatic aortic (valve) stenosis Category: Medical Plan: Last echocardiogram shows moderate aortic valve stenosis. Can be followed periodically. He really does not have any symptoms from this. (5) Essential hypertension: Code(s): I10 - Essential (primary) hypertension Category: Medical Plan: Stable. No changes. (6) Pulmonary hypertension: Code(s): I27.20 - Pulmonary hypertension, unspecified Category: Medical Plan: Suspected to be from left heart dysfunction as well as from atrial fibrillation. No specific plan at his age. (7) Sick sinus syndrome: Code(s): I49.5 - Sick sinus syndrome Category: Medical Plan: Status post pacemaker. Can be followed remotely. (8) Left leg swelling: Code(s): M79.89 - Other specified soft tissue disorders Category: Medical Plan: Swelling in his left lower extremity starting in the knees. Discoloration as well. Uncertain etiology. Sent to ER by wheelchair for further evaluation. Coding Level of Care Code Est Pt Level 4 (92621) Diagnoses Chronic heart failure with preserved ejection fraction I50.32 Paroxysmal A-fib I48.0 CAD (coronary artery disease) I25.10 Aortic stenosis I35.0 Essential hypertension I10 Pulmonary hypertension I27.20 Sick sinus syndrome I49.5 Left leg swelling M79.89 CPT Codes Cardiac Device Check - Cardiac Device 2: [id number] Cardiac Device Check, pacemaker dual lead ([id number]) EKG - CPT: 78353-[id number], Complete ([id number])
[2023-12-07 12:26] VITALS: BP 140/60; PULSE 70; BMI 23.8
== END 2023-12-07 12:56 | disposition home or self-care (01) ==
PROVIDERS: PCP Internal Medicine; Visit Provider Internal Medicine
DX: I50.32 Chronic diastolic (congestive) heart failure (principal); I48.0 Paroxysmal atrial fibrillation; I25.10 Atherosclerotic heart disease of native coronary artery without angina pectoris; I35.0 Nonrheumatic aortic (valve) stenosis; I10 Essential (primary) hypertension; I27.20 Pulmonary hypertension, unspecified; I49.5 Sick sinus syndrome; M79.89 Other specified soft tissue disorders
CPT/HCPCS: 93010; 93280; 99214

== ENCOUNTER → 2023-12-07 12:02 | Outpatient (BNVA) | payer MEDICARE, SELFPAY | PROVIDERS: PCP Internal Medicine; Visit Provider Internal Medicine | DX: Z13.89 Encounter for screening for other disorder (principal) | CPT/HCPCS: 93005; 93280; 99212 ==

== ENCOUNTER 2023-12-07 13:03 | Emergency (ER) | payer MEDICARE, SELFPAY ==
[2023-12-07 14:09] VITALS: BP 174/72; PULSE 68; RESP 16; TEMP 36.8; O2SAT 97; BMI 24.1
--- NOTE | 2023-12-07 14:17 | ED_ITS ---
HPI - Extremity Problem General Chief complaint: Skin/Abscess/Foreign Body Stated complaint: Open Wound L Leg Sent by Cardiology Time Seen by Provider: 12/07/23 15:19 Related Data Home Medications ?Medication ?Instructions ?Recorded ?Confirmed albuterol 90 mcg/actuation aerosol 90 mcg inhalation Q6-8H 12/31/21 12/07/23 inhaler allopurinol 300 mg tablet 300 mg PO DAILY 12/31/21 12/07/23 aspirin 81 mg tablet,delayed 81 mg PO DAILY 12/31/21 12/07/23 release (Adult Low Dose Aspirin) rosuvastatin 40 mg tablet 40 mg PO DAILY 12/31/21 12/07/23 torsemide 20 mg tablet 20 mg PO DAILY 04/23/22 12/07/23 Previous Rx's ?Medication ?Instructions ?Recorded amlodipine 5 mg tablet (Norvasc) 5 mg PO DAILY #90 tabs 03/10/22 carvedilol 12.5 mg tablet 18.75 mg (1.5 x 12.5 mg) PO BID 90 09/01/22 days #270 tabs Allergies Allergy/AdvReac Type Severity Reaction Status Date / Time No Known Allergies Allergy Verified 12/07/23 14:10 [facility] Past Medical History Medical History Essential hypertension CKD (chronic kidney disease) Cervical spinal stenosis CAD (coronary artery disease) Gout Low back pain HLD (hyperlipidemia) Surgical History History of heart artery stent History of carpal tunnel surgery of left wrist Family History Family History Mother Diabetes Father No problems noted. Social History Social History Household Members: Spouse Alcohol intake: current Alcohol intake frequency: 0-2 drinks per day Alcohol type: wine Patient Tobacco Use Status: Former Tobacco user Advance Directives: No Advance Directives Information Provided: No Physical Exam Vital Signs: Vital Signs: Last Vital Signs Temp 98.2 F 12/07/23 14:09 Pulse 68 12/07/23 14:09 Resp 16 12/07/23 14:09 BP 174/72 H 12/07/23 14:09 Pulse Ox 97 12/07/23 14:09 O2 Del Method Room Air 12/07/23 14:09 BMI result Body Mass Index 24.1 Course Course Course Narrative: This is a Rapid Medical Examination (RME) performed by Tamiko Duff PA-C in triage. Full HPI, ROS, assessment and treatment plan per primary provider in the Main ED. 83-year-old male with history of CKD 4, pulm HTN, HFpEF, SSS s/p PPM, afib not on anticoagulation who presents to the ER for evaluation of a painful wound to the left knee that started 6 days ago. Pain and redness now extend to the ankle with black/blue/purple discoloration of the toes. Sent in from Cardiology office. In triage, foot is warm, swollen with erythema and blue/purple discoloration of the toes however no palpable pulses. the wound is over the left knee, scabbing with erythema, no drainage. mild swelling of the knee, it is flexed. no calf tenderness on examination. Plan: patient brought to area outside of triage by triage nurse so he can be bedded. he states he is unwilling to be admitted or stay overnight. encouraged to stay for vascular studies. US arterial & venous studies ordered, labs Discharge Plan Discharge Clinical Impression: Discoloration of skin of lower leg Patient Disposition: Left W/O Completing Treatment Prescriptions: No Action carvedilol 12.5 mg tablet 18.75 mg PO BID 90 Days Qty: 270 1RF Rx Instructions: must administer with a meal/food torsemide 20 mg tablet 20 mg PO DAILY rosuvastatin 40 mg tablet 40 mg PO DAILY allopurinol 300 mg tablet 300 mg PO DAILY aspirin [Adult Low Dose Aspirin] 81 mg tablet,delayed release (DR/EC) 81 mg PO DAILY albuterol 90 mcg/actuation aerosol 90 mcg inhalation Q6-8H amlodipine [Norvasc] 5 mg tablet 5 mg PO DAILY Qty: 90 3RF Discharge Date/Time: 12/07/23 17:47
--- NOTE | 2023-12-07 14:26 | PC.NURSE ---
Pt stated I will not stay overnight in the hospital.
--- NOTE | 2023-12-07 15:29 | PC.NURSE ---
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
--- NOTE | 2023-12-07 15:34 | PC.NURSE ---
US tech came to ER, did not have patient. cook fish and chips Bella to look again in [facility] for patient.
== END 2023-12-07 17:47 | disposition left against medical advice (07) ==
LOC: HO.ED 17:40
PROVIDERS: Emergency Provider Student in an Organized Health Care Education/Training Program; PCP Internal Medicine
DX: R23.8 Other skin changes (principal); M79.605 Pain in left leg
CPT/HCPCS: 93005; 93280; 99212; 99281

== ENCOUNTER → 2023-12-28 23:59 | Outpatient (BNV) | payer MEDICARE, SELFPAY ==
--- NOTE | 2023-12-31 08:52 | MHC.OFFVIS ---
Intake Visit Reasons: Remote Device Check- [employer] Allergies No Known Allergies Allergy (Verified 12/07/23 14:10) [facility] Medical History Essential hypertension CKD (chronic kidney disease) Cervical spinal stenosis CAD (coronary artery disease) Gout Low back pain HLD (hyperlipidemia) Surgical History History of heart artery stent History of carpal tunnel surgery of left wrist Family History Mother Diabetes Father No problems noted. 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 Overall normal device function. [id number] Cardiac Device Interrogation, pacemaker Procedure code (CPT) selection complete Assessment & Plan Assessment & Plan (1) Pacemaker: Code(s): Z95.0 - Presence of cardiac pacemaker Category: Medical (2) Paroxysmal A-fib: Code(s): I48.0 - Paroxysmal atrial fibrillation Category: Medical Plan x Coding Level of Care Code Procedure Only Diagnoses Pacemaker Z95.0 Paroxysmal A-fib I48.0 CPT Codes Cardiac Device Check - Cardiac Device 12: [id number] Cardiac Device Interrogation, pacemaker ([id number])
== END ==
PROVIDERS: PCP Internal Medicine; Visit Provider Internal Medicine
DX: I48.0 Paroxysmal atrial fibrillation (principal); Z95.0 Presence of cardiac pacemaker
CPT/HCPCS: 93294

== ENCOUNTER 2024-03-09 11:39 | Outpatient (AMB) | payer MEDICARE, SELFPAY ==
[2024-03-09 11:46] VITALS: BP 130/78; PULSE 96; O2SAT 97; BMI 23.0
--- NOTE | 2024-03-09 11:46 | HO.NEPHOV ---
Vital Signs 03/09/24 11:46 Height 5 ft 7 in Weight 147 lb BMI 23.0 BP 130/78 Blood Pressure Location Lt brachial Position Sitting Pulse 96 Pulse Source Pulse Oximeter Pulse Oximetry (%) 97 Oxygen Delivery Method Room Air Intake Visit Reasons: 4 mon follow up/ LVM Clinical Appeals Auditor Required: No Accompanied by: Self / Same As Patient Allergies No Known Allergies Allergy (Verified 03/09/24 11:49) Medication List - Last Reconciled 03/09/24 by Konrad Collado MD albuterol 90 mcg/actuation 90 mcg inhalation Q6-8H allopurinol 300 mg PO DAILY amlodipine (Norvasc) 5 mg PO DAILY aspirin (Adult Low Dose Aspirin) 81 mg PO DAILY carvedilol 18.75 mg (1.5 x 12.5 mg) PO BID 90 days rosuvastatin 40 mg PO DAILY torsemide 20 mg PO DAILY HPI Comments Details: Elderly man with long standing HTN and CKD with a baseline creatinine of about 3 mg/dL and h.o ATN by biopsy in 2020, CAD, s.p Pacemaker, CAD and CHF referred for managemnet of CKD He was on Torsemide 40 mg QD Developed dyspnea So self administered 20 mg Q PM in addition to 40 mg Q AM for the past 2 weeks Feels much better No dyspnea Monitors weight at home and it remains stable No edema 07/01/23 Here for Follow up ;Gained 5 lbs after lowering Torsemide ;Has some dyspnea on exertion 10/28/23: Doing well. Lost few pounds. Breathing is good 03/09/2024. No new issues today. His weight is around 137-145 lb at home. Usually feels better at 140 lb. And short of breath at 145 lb. He is on torsemide [facility] Medical History Essential hypertension CKD (chronic kidney disease) Cervical spinal stenosis CAD (coronary artery disease) Gout Low back pain HLD (hyperlipidemia) Surgical History History of heart artery stent History of carpal tunnel surgery of left wrist Family History Mother Diabetes Father No problems noted. Social History Household Members: Spouse Alcohol intake: current Alcohol intake frequency: 0-2 drinks per day Alcohol type: wine Patient Tobacco Use Status: Former Tobacco user Physical Exam Vital Signs: Last Vital Signs Pulse 96 03/09/24 11:46 BP 130/78 03/09/24 11:46 Pulse Ox 97 03/09/24 11:46 Oxygen Delivery Method Room Air 03/09/24 11:46 BMI result Body Mass Index 23.0 Const General: comfortable; No acute distress Orientation/consciousness: patient oriented x3 Eyes General: appearance normal, both eyes and all related structures Visual Black: normal visual black by confrontation Neck Neck: Yes supple and Yes no JVD Resp Effort & Inspection: normal respiratory effort and respiratory effort not decreased Auscultation: rhonchi Cardio Palpation: no palpable S3 and no palpable S4 Heart sounds: no rubs GI Inspection: Yes normal to inspection Palpation (GI): Soft to palpation Percussion: Yes normal to percussion Auscultation: normal bowel sounds General: Yes no CVA tenderness Back/Spine/Pelvis Back: no CVA tenderness Skin General skin exam: no petechiae and no purpura Neuro General: patient oriented x3 and no focal motor deficits Extrem General: No clubbing and No edema Results Reviewed Nephrology Results: No Data to Display Assessment & Plan Assessment & Plan (1) Essential hypertension: Code(s): I10 - Essential (primary) hypertension Category: Medical (2) Chronic heart failure with preserved ejection fraction: Code(s): I50.32 - Chronic diastolic (congestive) heart failure Category: Medical (3) CKD (chronic kidney disease) stage 4, GFR 15-29 ml/min: Comment: ATN by biopsy in 2020; 16 of 30 [place] with Global sclerosis ( 50%) Consistent with hypertensive kidney disease. 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 Most likely due to hypoperfusion in the setting of diuretic use. I have asked him to monitor his weight at home. If his weight drops to 137 or lower I have asked him to hold the diuretic for a day or 2 and recheck his weight [place] weight is around 140 lb. Shall continue to monitor renal function. Orders: Orders Basic Metabolic Panel 3 Months N18.4 - Chronic kidney disease, stage 4 (severe) Coding Level of Care Code Est Pt Level 4 (50142) Diagnoses Essential hypertension I10 Chronic heart failure with preserved ejection fraction I50.32 CKD (chronic kidney disease) stage 4, GFR 15-29 ml/min N18.4
== END 2024-03-09 12:05 | disposition home or self-care (01) ==
PROVIDERS: PCP Internal Medicine; Visit Provider Internal Medicine Hypertension Specialist
DX: I12.9 Hypertensive chronic kidney disease with stage 1 through stage 4 chronic kidney disease, or unspecified chronic kidney disease (principal); I50.32 Chronic diastolic (congestive) heart failure; N18.4 Chronic kidney disease, stage 4 (severe)
CPT/HCPCS: 99214

== ENCOUNTER → 2024-03-09 11:39 | Outpatient (BNVA) | payer MEDICARE, SELFPAY | PROVIDERS: PCP Internal Medicine; Visit Provider Internal Medicine Hypertension Specialist | DX: I12.9 Hypertensive chronic kidney disease with stage 1 through stage 4 chronic kidney disease, or unspecified chronic kidney disease (principal); I50.32 Chronic diastolic (congestive) heart failure; N18.4 Chronic kidney disease, stage 4 (severe); Z95.5 Presence of coronary angioplasty implant and graft | CPT/HCPCS: 99212 ==

== ENCOUNTER → 2024-03-28 23:59 | Outpatient (BNV) | payer MEDICARE, SELFPAY ==
--- NOTE | 2024-04-03 10:07 | MHC.OFFVIS ---
Intake Visit Reasons: Remote device check-[employer] Allergies No Known Allergies Allergy (Verified 03/09/24 11:49) [facility] Medical History Essential hypertension CKD (chronic kidney disease) Cervical spinal stenosis CAD (coronary artery disease) Gout Low back pain HLD (hyperlipidemia) Surgical History History of heart artery stent History of carpal tunnel surgery of left wrist Family History Mother Diabetes Father No problems noted. 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 Overall normal device function. [id number] Cardiac Device Interrogation, pacemaker Procedure code (CPT) selection complete Assessment & Plan Assessment & Plan (1) Pacemaker: Code(s): Z95.0 - Presence of cardiac pacemaker Category: Medical (2) Sick sinus syndrome: Code(s): I49.5 - Sick sinus syndrome Category: Medical Plan x Coding Level of Care Code Procedure Only Diagnoses Pacemaker Z95.0 Sick sinus syndrome I49.5 CPT Codes Cardiac Device Check - Cardiac Device 12: [id number] Cardiac Device Interrogation, pacemaker ([id number])
== END ==
PROVIDERS: PCP Internal Medicine; Visit Provider Internal Medicine
DX: I49.5 Sick sinus syndrome (principal); Z95.0 Presence of cardiac pacemaker
CPT/HCPCS: 93294

== ENCOUNTER → 2024-06-27 23:59 | Outpatient (BNV) | payer MEDICARE, SELFPAY ==
--- NOTE | 2024-06-29 19:00 | MHC.OFFVIS ---
Intake Visit Reasons: Remote device check-[employer] Allergies No Known Allergies Allergy (Verified 03/09/24 11:49) [facility] Medical History Essential hypertension CKD (chronic kidney disease) Cervical spinal stenosis CAD (coronary artery disease) Gout Low back pain HLD (hyperlipidemia) Surgical History History of heart artery stent History of carpal tunnel surgery of left wrist Family History Mother Diabetes Father No problems noted. Social History Household Members: Spouse Alcohol intake: current Alcohol intake frequency: 0-2 drinks per day Alcohol type: wine Patient Tobacco Use Status: Former Tobacco user Office Procedures Cardiac Device Check Cardiac Device Check Details: Date of service- 06/27/2024 ; Battery life 4 years; normal lead parameters; AP 2%; CARBONIZER TESTER 45%; AT/AF burden 73%. Overall normal device function. [id number] Cardiac Device Interrogation, pacemaker Procedure code (CPT) selection complete Assessment & Plan Assessment & Plan (1) Pacemaker: Code(s): Z95.0 - Presence of cardiac pacemaker Category: Medical (2) Sick sinus syndrome: Code(s): I49.5 - Sick sinus syndrome Category: Medical Plan x Coding Level of Care Code Procedure Only Diagnoses Pacemaker Z95.0 Sick sinus syndrome I49.5 CPT Codes Cardiac Device Check - Cardiac Device 12: [id number] Cardiac Device Interrogation, pacemaker ([id number])
== END ==
PROVIDERS: PCP Internal Medicine; Visit Provider Internal Medicine
DX: I49.5 Sick sinus syndrome (principal); Z95.0 Presence of cardiac pacemaker
CPT/HCPCS: 93294

== ENCOUNTER → 2024-09-26 23:59 | Outpatient (BNV) | payer OTHER, SELFPAY ==
--- NOTE | 2024-09-29 08:27 | MHC.OFFVIS ---
Intake Visit Reasons: Remote device check-[employer] Allergies No Known Allergies Allergy (Verified 03/09/24 11:49) [facility] Medical History Essential hypertension CKD (chronic kidney disease) Cervical spinal stenosis CAD (coronary artery disease) Gout Low back pain HLD (hyperlipidemia) Surgical History History of heart artery stent History of carpal tunnel surgery of left wrist Family History Mother Diabetes Father No problems noted. 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 Overall normal device function. [id number] Cardiac Device Check, leadless/single lead pacemaker Procedure code (CPT) selection complete Assessment & Plan Assessment & Plan (1) Pacemaker: Code(s): Z95.0 - Presence of cardiac pacemaker Category: Medical (2) Paroxysmal A-fib: Code(s): I48.0 - Paroxysmal atrial fibrillation Category: Medical Plan x Coding Level of Care Code Procedure Only Diagnoses Pacemaker Z95.0 Paroxysmal A-fib I48.0 CPT Codes Cardiac Device Check - Cardiac Device 1: [id number] Cardiac Device Check, leadless/single lead pacemaker ([id number])
== END ==
PROVIDERS: PCP Internal Medicine; Visit Provider Internal Medicine
DX: I48.0 Paroxysmal atrial fibrillation (principal); Z95.0 Presence of cardiac pacemaker
CPT/HCPCS: 93294